=== PATIENT | male | born 1960 | race Caucasian/White ===

== ENCOUNTER 2016-08-08 12:19 | Day surgery (SDC) | payer OTHER ==
[~2016-08-08] VITALS: Ht 182.9 cm; Wt 90.7 kg
[~2016-08-08 12:19] MED LIST: AMT25T PO; ASPI-973 PO; CYCL10TA9 PO; GABA-502 PO; IMIQ1CRE14 TP; MORP30TA PO; OMEP20CA11 PO; OXYC-407 PO; [UNRECOGNIZED DRUG - CODE] PO
[2016-08-08] MEDS ORDERED: Bupivacaine-MPF 0.25% 30 mL Inj ONE (12:20)
[2016-08-08] MEDS ORDERED: MethylprednisoLONE Depot 80 mg/mL Inj ONE (12:20)
[2016-08-08 12:54] VITALS: BP 101/70; PULSE 79; RESP 14; O2SAT 98
--- NOTE | 2016-08-08 16:41 | PCM.PROC ---
Procedure Note Date of Service: Aug 08, 2016 Pre Procedure Diagnosis: PROCEDURE: Ultrasound-guided RIGHT piriformis muscle injection and sciatic nerve perineural injection PRE-PROCEDURE DIAGNOSIS: Low back pain, piriformis syndrome POST-PROCEDURE DIAGNOSIS: same INDICATION: 56-year-old gentleman with buttock and leg pain consistent with piriformis syndrome PERFORMED BY: Kody Edward MD DESCRIPTION OF PROCEDURE: Patient was met in the holding area. Consent was signed, site was confirmed and all questions were answered. Patient was taken to the procedure suite and placed prone on the procedure table. Area was prepped and draped sterile fashion. Local anesthesia 1% lidocaine was injected into the skin and subcutaneous tissues. A 25-gauge Quincke 3-1/2 inch spinal needle was advanced towards the piriformis muscle using direct ultrasound visualization. 2 cc of 0.25% bupivacaine with 20 mg Depo-Medrol was injected without incident. 10 mg Depo-Medrol with 0.4cc 0.25% Bupivicaine was then injected around the sciatic nerve under direct ultrasound visualization. ANESTHESIA: Local. EBL: None. No Blood Products Used COMPLICATIONS: None SPECIMENS: None POST-PROCEDURE DISPOSITION: Patient was returned to the holding area in stable condition. They were discharged home when all discharge criteria were met. Evaluation/Physical Exam before discharge revealed: DISCHARGE MEDICATIONS: FOLLOW UP: Keep scheduled followup appointment Kody Coats MD, MD Aug 08, 2016 16:41
== END 2016-08-08 23:59 | disposition home or self-care (01) ==
LOC: END 12:19
PROVIDERS: ATTEND Anesthesiology Pain Medicine
DX: G57.01 Lesion of sciatic nerve, right lower limb (principal); M25.551 Pain in right hip; G89.4 Chronic pain syndrome; Z79.891 Long term (current) use of opiate analgesic; M54.5 Low back pain
CPT/HCPCS: 20552; 76942; J1040

== ENCOUNTER 2016-10-17 10:19 | Day surgery (SDC) | payer OTHER ==
[~2016-10-17] VITALS: Ht 182.9 cm; Wt 90.7 kg
[~2016-10-17 10:19] MED LIST changes: -CYCL10TA9 PO; -GABA-502 PO
[2016-10-17] MEDS ORDERED: Bupivacaine-MPF 0.25% 30 mL Inj ONE (10:20)
[2016-10-17] MEDS ORDERED: Iohexol 240 mg/mL 10 mL Inj ONE (10:20)
[2016-10-17] MEDS ORDERED: MethylprednisoLONE Depot 80 mg/mL Inj ONE (10:20)
[2016-10-17 11:32] VITALS: BP 126/72; PULSE 83; RESP 16; O2SAT 97
--- NOTE | 2016-10-17 13:06 | PCM.PROC ---
Procedure Note Date of Service: Oct 17, 2016 Pre Procedure Diagnosis: Procedure Note PROCEDURE: RIGHT Flouroscopic guided hip joint injection. PRE-PROCEDURE DIAGNOSIS: Hip arthropathy/pain POST-PROCEDURE DIAGNOSIS: same INDICATION: 56-year-old patient with RIGHT hip pain PERFORMED BY: Kody Edward MD DESCRIPTION OF PROCEDURE: Patient was met in the holding area. Consent was signed, site was confirmed and all questions were answered. Patient was taken to the procedure suite and placed supine on the procedure table. Area was prepped and draped in sterile fashion. Local anesthesia with 1% lidocaine was injected into the skin and subcutaneous tissues Using x-ray guidance, a 3-1/2 inch 22-gauge Quincke spinal needle was advanced into the hip joint and 4cc of 0.25% bupivacaine with 80mg depomedrol was injected without incident, after contrast confirmed intra-articular placement without vascular uptake. ANESTHESIA: Local EBL: None. No Blood Products Used COMPLICATIONS: None SPECIMENS: None POST-PROCEDURE DISPOSITION: Patient was returned to the holding area in stable condition. They were discharged home when all discharge criteria were met. Evaluation/Physical Exam before discharge revealed: DISCHARGE MEDICATIONS: FOLLOW UP: Keep scheduled followup Kody Edward MD * Pain Management * Anesthesiology cc: Kody Edward MD Oct 17, 2016 13:06
== END 2016-10-17 23:59 | disposition home or self-care (01) ==
LOC: END 10:19
PROVIDERS: ATTEND Anesthesiology Pain Medicine
DX: M25.551 Pain in right hip (principal); M54.5 Low back pain; M47.12 Other spondylosis with myelopathy, cervical region; G89.4 Chronic pain syndrome; Z79.82 Long term (current) use of aspirin
CPT/HCPCS: 20610; J1040